=== PATIENT | male | born 1945 | race Caucasian/White ===

== ENCOUNTER 2016-08-29 16:31 | Inpatient (IN) | payer OTHER, BC ==
[~2016-08-29] VITALS: Ht 304.8 cm; Wt 68.9 kg
[2016-08-29 17:22] LABS: MCHC 33.3 G/DL (30.0-36.0); MCV 87.1 FL (86-99); RBC DIS.WIDTH-CV 12.8 % (11.8-14.6); RBC DIS.WIDTH-SD 40.4 % (39-53); RED BLOOD COUNT 4.59 M/uL (4.00-5.50); WHITE BLOOD COUNT 14.9 K/uL (4.1-10.2)
[2016-08-29 17:32] LABS: CHLORIDE 95 mEq/L (99-109); POTASSIUM 4.1 mEq/L (3.7-5.4); SODIUM 130 mEq/L (136-147)
[2016-08-29 17:33] LABS: GLUCOSE 130 mg/dL (70-99)
[2016-08-29 17:35] LABS: ANION GAP 12 MEQ/L (2-14)
[2016-08-29 17:38] LABS: UREA NITROGEN (BUN) 17 mg/dL (9-23)
[2016-08-29 17:39] LABS: GFR ESTIMATE (CALCULATED) > 59 mL/min/
[2016-08-29 17:44] LABS: TROP-I INTERPRETATION NEGATIVE; TROPONIN-I 0.03 ng/mL (0.0-0.30)
[2016-08-29 18:27] LABS: PLAT.SUFFICIENCY ADEQUATE; PLATELET COUNT 325 K/uL (156-360)
[2016-08-29] MEDS ORDERED: ALEVE220 M2 PO (19:32)
[2016-08-29 23:45] LABS: D-DIMER ELISA 0.99 mg/L FEU (< 0.57); INTER. NORMALIZED RATIO 1.2; PROTHROMBIN TIME 12.4 (9.2-11.2); PTT 34.3 (25-32)
[2016-08-30] VITALS (7 sets, daily range): BP systolic 95–158; BP diastolic 63–95
[2016-08-30 01:02] LABS: TROP-I INTERPRETATION NEGATIVE; TROPONIN-I 0.03 ng/mL (0.0-0.30)
[2016-08-30 05:42] LABS: HEMATOCRIT 36.5 % (38.0-50.0); MCH 28.7 PG (29.0-34.0); MCHC 32.6 G/DL (30.0-36.0); MEAN PLAT.VOLUME 10.7 uM^3 (9.0-12.4); PLATELET COUNT 295 K/uL (156-360); RBC DIS.WIDTH-CV 13.1 % (11.8-14.6); RBC DIS.WIDTH-SD 41.8 % (39-53); RED BLOOD COUNT 4.15 M/uL (4.00-5.50)
[2016-08-30 06:15] LABS: TROP-I INTERPRETATION NEGATIVE; TROPONIN-I 0.03 ng/mL (0.0-0.30)
[2016-08-30 06:38] LABS: ANION GAP 10 MEQ/L (2-14); CHLORIDE 101 MEQ/L (99-109); GFR ESTIMATE (CALCULATED) > 59 mL/min/; GLUCOSE 135 mg/dL (70-99); POTASSIUM 4.5 MEQ/L (3.7-5.4); SAMPLE HEMOLYSIS CHECK 0; SAMPLE ICTERIC CHECK 0; SAMPLE LIPEMIA CHECK 0; UREA NITROGEN (BUN) 17 mg/dL (9-23)
[2016-08-30 06:41] LABS: SODIUM 138 MEQ/L (136-147)
[2016-08-31 03:30] VITALS: BP 101/70
[2016-08-31 04:09] LABS: ADD MIUA? YES; BILIRUBIN NEGATIVE; BLOOD SMALL; COLOR YELLOW ((YELLOW)); GLUCOSE (STRIP) 50; KETONES NEGATIVE; LEUKOCYTES NEGATIVE; NITRITE NEGATIVE; PROTEIN (STRIP) NEGATIVE; UROBILINOGEN 0.2 MG/DL (0.2-1.0)
[2016-08-31 04:18] LABS: BACTERIA NONE SEEN /HPF; EPITHELIAL CELLS NONE SEEN /HPF; MUCUS NONE SEEN /LPF; RED BLOOD CELLS 20-30 /HPF (0-5); UCUL ADDED? NO; WHITE BLOOD CELLS 0-5 /HPF (0-5)
[2016-08-31 05:56] LABS: ALKALINE PHOSPHATASE 115 IU/L (3-129); ANION GAP 11 MEQ/L (2-14); CHLORIDE 102 MEQ/L (99-109); DIRECT BILIRUBIN 0.2 mg/dL (0.0-0.3); GFR ESTIMATE (CALCULATED) > 59 mL/min/; GLUCOSE 167 mg/dL (70-99); POTASSIUM 4.2 MEQ/L (3.7-5.4); SAMPLE HEMOLYSIS CHECK 0; SAMPLE ICTERIC CHECK 0; SAMPLE LIPEMIA CHECK 0; SODIUM 139 MEQ/L (136-147); TOTAL BILIRUBIN 0.5 MG/DL (0.0-1.0); UREA NITROGEN (BUN) 22 mg/dL (9-23)
[2016-08-31 07:58] VITALS: BP 112/63
[2016-08-31 08:53] LABS: Estimated Average Glucose 131 mg/dL (70-123); HEMOGLOBIN A1c (GLYCOHEMOGLOB) 6.2 % HGB (Below 5.7)
[2016-08-31 11:59] VITALS: BP 122/80
[2016-08-31] MEDS ORDERED: ELIQUIS5 MG PO (16:43)
[2016-08-31 17:07] VITALS: BP 117/80
[2016-08-31 19:25] VITALS: BP 129/83
[2016-09-01] VITALS (7 sets, daily range): BP systolic 121–158; BP diastolic 70–98
[2016-09-02 04:00] VITALS: BP 129/84
[2016-09-02 06:46] LABS: EOSINOPHIL (%) 0.1 % (0-5); HEMATOCRIT 37.6 % (38.0-50.0); IMMATURE GRANULOCYTE (%) 1.1 % (0.0-0.7); IMMATURE GRANULOCYTE COUNT 0.2 K/uL; INSTRUMENT ABS NEUTROPHIL CT 13.5 K/uL; LYMPHOCYTE COUNT 2.5 K/uL (1.0-2.8); MCH 29.1 PG (29.0-34.0); MCHC 33.2 G/DL (30.0-36.0); MCV 87.4 FL (86-99); MONOCYTE (%) 10.1 % (3-12); MONOCYTE COUNT 1.8 K/uL (0-0.8); NEUTROPHIL (%) 74.6 % (45-76); NEUTROPHIL COUNT 13.5 K/uL (1.8-6.4); PLATELET COUNT 360 K/uL (156-360); RBC DIS.WIDTH-SD 44.1 % (39-53); WHITE BLOOD COUNT 18.1 K/uL (4.1-10.2)
[2016-09-02 07:16] LABS: ANION GAP 6 MEQ/L (2-14); CHLORIDE 101 MEQ/L (99-109); GFR ESTIMATE (CALCULATED) > 59 mL/min/; POTASSIUM 4.3 MEQ/L (3.7-5.4); SAMPLE HEMOLYSIS CHECK 0; SAMPLE ICTERIC CHECK 0; SAMPLE LIPEMIA CHECK 0; SODIUM 138 MEQ/L (136-147); UREA NITROGEN (BUN) 21 mg/dL (9-23)
[2016-09-02 07:31] LABS: GLUCOSE 87 mg/dL (70-99)
[2016-09-02 08:29] VITALS: BP 135/89
[2016-09-02] MEDS ORDERED: ATORVASTATIN CA40 MG PO (12:00)
[2016-09-02] MEDS ORDERED: LOPRESSOR25 MG PO (12:00)
[2016-09-02] MEDS ORDERED: DILTIAZEM 24HR180 MG PO (12:00)
[2016-09-02] MEDS ORDERED: SPIRIVA RESPIMAT4 GM IH (12:00)
[2016-09-02] MEDS ORDERED: CEFTIN500 MG PO (12:00)
[2016-09-02] MEDS ORDERED: DIGOXIN250 MCG PO (12:00)
[2016-09-02] MEDS ORDERED: ASPIRIN EC325 MG PO (12:00)
[2016-09-02] MEDS ORDERED: PREDNISONE10 MG PO (12:00)
== END 2016-09-02 13:47 | disposition home or self-care (01) | DRG 193 ==
LOC: EME 16:31 → EDOF 20:30 → 4EAST 20:30 → 5EAST 22:45 → 4EAST 08-30 00:03
PROVIDERS: Emergency Medicine; Hospitalist; Internal Medicine; Internal Medicine Cardiovascular Disease; Physician Assistant
DX: J16.0 Chlamydial pneumonia (principal); J96.01 Acute respiratory failure with hypoxia; J84.9 Interstitial pulmonary disease, unspecified; J44.1 Chronic obstructive pulmonary disease with (acute) exacerbation; F17.210 Nicotine dependence, cigarettes, uncomplicated; I74.5 Embolism and thrombosis of iliac artery; J44.0 Chronic obstructive pulmonary disease with (acute) lower respiratory infection; I48.91 Unspecified atrial fibrillation; I70.0 Atherosclerosis of aorta; I70.202 Unspecified atherosclerosis of native arteries of extremities, left leg; I70.8 Atherosclerosis of other arteries; Z79.82 Long term (current) use of aspirin; I50.9 Heart failure, unspecified
CPT/HCPCS: 71020; 71275; 74177; 80048; 80076; 81003; 83036; 83605; 83880; 84439; 84443; 84484; 85025; 85027; 85379; 85610; 85730; 87040; 87070; 87106; 87205; 93005; 93306; 94640; 94640 76; 94760; 94799; 99202; 99281; 99285; J0696; J1100; J1160; J1650; J1956; J2930; J7030; J7050; J7120; J7512